=== PATIENT | female | born 1940 | race Asian ===

== ENCOUNTER 2022-07-08 21:25 | Emergency (ER) | payer OTHER ==
[~2022-07-08] VITALS: Ht 154.9 cm; Wt 53.1 kg
--- NOTE | 2022-07-08 21:46 | NUR ---
BIBRA FROM ORIENTAL ORTHODOX C/O GLF FROM TRIPPING ON STAIRS. +HIT HEAD -LOC - BLOOD THINNERS. PLACED ON BED, AAOX4, BREATHING UNLABORED.
--- NOTE | 2022-07-08 22:05 | NUR ---
MARIA LUISA : [phone]
[2022-07-08] MEDS ORDERED: ACETAMINOPHEN ES 500 MG TABLET ONE (22:17)
[2022-07-08] MEDS ORDERED: ACETAMINOPHEN ES 500 MG TABLET PO ONE (22:30)
--- NOTE | 2022-07-08 22:44 | NUR ---
CALLED RAD TO COME TAKE PT TO CT
--- NOTE | 2022-07-08 23:44 | NUR ---
Patient discharged to home in stable condition with daughter. Written and verbal after care instructions given. Patient verbalizes understanding of instruction.
[2022-07-09 00:03] VITALS: BP 137/56
== END 2022-07-09 00:03 | disposition home or self-care (01) ==
LOC: ER 21:36
DX: S00.83XA Contusion of other part of head, initial encounter (principal); I10 Essential (primary) hypertension; W18.09XA Striking against other object with subsequent fall, initial encounter; Y93.01 Activity, walking, marching and hiking; Y92.22 Religious institution as the place of occurrence of the external cause; Y99.9 Unspecified external cause status
CPT/HCPCS: 70450-TC